=== PATIENT | female | born 1955 | race Caucasian/White ===

== ENCOUNTER → 2016-07-31 | Outpatient (CLI) | payer OTHER ==
--- NOTE | 2016-07-31 16:38 | MA ---
Screening Digital Mammogram with iCAD Analysis Clinical Indications: 60-year-old female with no family history, presenting for routine annual mammog raphic screening. Technique: Standard cephalocaudal projections are obtained. Digital breast tomosynthesis was performe d in the MLO projection, with reconstruction at a 1.0 mm slice thickness, and composite MLO views rec onstructed. This examination is processed by the iCAD computer aided detection system. Comparison Studies: Bilateral digital screening mammography, dated June 09, 2013, January 05, 2011, and November 22, 2009. Breast Density: Type B (Scattered fibroglandular densities). Findings: CAD was reviewed, and is negative. There are no new masses, suspicious microcalcifications, or secondary signs of malignancy identified. There is been no significant change in the appearance o f either breast. Impression: Negative mammography. BI-RADS Category 1. Recommendation: Routine mammographic screening in one year. [facility] will send a result letter to the patient. Negative mammography should not preclude additional workup of a clinically suspicious finding. The patient's information is entered into a reminder system with a target due date for her next mammo gram.
== END ==
LOC: FIMAGING 13:36
DX: Z12.31 Encounter for screening mammogram for malignant neoplasm of breast (principal)
CPT/HCPCS: G0202

== ENCOUNTER → 2018-09-20 | Outpatient (CLI) | payer OTHER | LOC: FIMAGING 15:28 | PROVIDERS: ATTEND Family Medicine | DX: Z12.31 Encounter for screening mammogram for malignant neoplasm of breast (principal) ==